=== PATIENT | female | born 1990 | race African-American/Black ===

== ENCOUNTER 2019-11-13 07:12 | Inpatient (IN) | payer MEDICAID ==
[2019-11-13] MEDS ORDERED: Sodium Chloride 0.9% 10 ML Syringe FLUSH PRN (07:15)
[2019-11-13] MEDS ORDERED: Ampicillin 2 GM in Sodium Chloride 0.9% 100 ML IV ONE (07:15)
[2019-11-13] MEDS ORDERED: Nalbuphine 10 MG/ML Syringe IVPUSH PRN (07:15)
[2019-11-13] MEDS ORDERED: Lactated Ringers 1,000 ML IV SCH (07:15)
[2019-11-13] MEDS ORDERED: Oxytocin/Lactated Ringers 10 UNIT/1,000 ML BAG IV SCH ×2 (07:15)
[2019-11-13] MEDS ORDERED: Ondansetron 4 MG/2 ML SDV IVPUSH PRN (07:15)
--- NOTE | 2019-11-13 07:24 | PCM.LDHP ---
L&D History of Present Illness - General Date of Service: 11/13/19 Admit Problem/Dx: Patient Status Order with Admit Dx/Problem 11/13/19 07:15 Patient Status [ADT] Routine Admission Diagnosis/Problem Admission Diagnosis/Problem Normal in third trimester Source of Information: Patient History Limitations: Reports: No Limitations - History of Present Illness Introduction:: Patient is a 29 y/o at 39 0/7 wks who presents for elective IOL given lives 1.5 hours from hospital. Doing well today. No contractions. No pain. Good FM - Related Data Allergies/Adverse Reactions: Allergies Allergy/AdvReac Type Severity Reaction Status Date / Time No Known Allergies Allergy Verified 11/13/19 07:18 Home Medications: Home Meds . 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: : 8 Para: 7 LMP (Approximate): Social & Family History - Tobacco Use Smoking Status *Q: Former Smoker - Alcohol Use Alcohol Use History: No - Recreational Drug Use Recreational Drug Use: No H&P Review of Systems - Review of Systems: Review Of Systems: See Below General: Reports: No Symptoms Pulmonary: Reports: No Symptoms Cardiovascular: Reports: No Symptoms Gastrointestinal: Reports: No Symptoms Genitourinary: Reports: No Symptoms Musculoskeletal: Reports: No Symptoms Psychiatric: Reports: No Symptoms Neurological: Reports: No Symptoms L&D Exam - Exam Exam: See Below - OB Specific Contraction Intensity: Irritability Movement: Active Heart Tones: Present Heart Tones per Min: 145 Heart Rate (FHR) Variability: Moderate (6-25 bmp) Presentation: Vertex - Shaw Score Shaw Score Cervix Position: Posterior Shaw Score Consistency: Soft Shaw Score Effacement: 51-70% Shaw Score Dilation: 1-2 cm Shaw Score 's Station: -2 Shaw Score Total: 6 - Exam General: Alert, Oriented, Cooperative Lungs: Clear to Auscultation, Normal Respiratory Effort Cardiovascular: Regular Rate, Regular Rhythm GI/Abdominal Exam: Soft, Non-Tender Genitourinary: Normal external exam Extremities: Normal Inspection Skin: Warm, Dry, Intact - Patient Data Result Diagrams: 11/13/19 07:25 - Problem List (1) 39 weeks gestation of SNOMED Code(s): 20808177 ICD Code: Z3A.39 - 39 WEEKS GESTATION OF Status: Acute Current Visit: Yes (2) GBS (group B Streptococcus carrier), +RV culture, currently SNOMED Code(s): 2923341319993, 437564149, 0747860092590 ICD Code: O99.820 - STREPTOCOCCUS B CARRIER STATE COMPLICATING Status: Acute Current Visit: Yes Problem List Initiated/Reviewed/Updated: Yes Orders Last 24hrs: Active Orders 24 hr Category Date Time Status Patient Status [ADT] Routine ADT 11/13/19 07:15 Active Activity as Tolerated [RC] PFP Care 11/13/19 07:15 Active Communication Order [RC] ASDIRECTED Care 11/13/19 07:15 Active Communication Order [RC] ASDIRECTED Care 11/13/19 07:15 Active Communication Order [RC] ASDIRECTED Care 11/13/19 07:15 Active Heart Tones [RC] ASDIRECTED Care 11/13/19 07:16 Active Monitoring [RC] INTERMITTENT Care 11/13/19 07:15 Active Non Stress Test [RC] PER UNIT ROUTINE Care 11/13/19 07:15 Active Notify Provider [RC] ASDIRECTED Care 11/13/19 07:15 Active Notify Provider [RC] PRN Care 11/13/19 07:15 Active Peripheral IV Care [RC] . DIRECTED Care 11/13/19 07:16 Active Vaginal Exam [RC] ASDIRECTED Care 11/13/19 07:15 Active Vital Signs [RC] ASDIRECTED Care 11/13/19 07:15 Active Regular Diet [DIET] Diet 11/13/19 Breakfast Active CBC W/O DIFF,HEMOGRAM [HEME] Routine Lab 11/13/19 07:15 Ordered RAPID PLASMA REAGIN,RPR [CHEM] Routine Lab 11/13/19 07:15 Ordered TYPE AND SCREEN [BBK] Routine Lab 11/13/19 07:15 Ordered Ampicillin 1 gm Med 11/13/19 11:30 Active Sodium Chloride 0.9% [Normal Saline] 100 ml IV Q4H Ampicillin 2 gm Med 11/13/19 07:15 Active Sodium Chloride 0.9% [Normal Saline] 100 ml IV ONETIME Lactated Ringers [Ringers, Lactated] 1,000 ml Med 11/13/19 07:15 Active IV ASDIRECTED Nalbuphine [Nubain] [facility] 11/13/19 07:15 Active 10 mg IVPUSH Q2H PRN Ondansetron [Zofran] [facility] 11/13/19 07:15 Active 4 mg IVPUSH Q4H PRN Oxytocin/Lactated Ringers [Pitocin in LR 10 Units/1,000 Med 11/13/19 07:15 Active ML] 10 unit in 1,000 ml IV .CONTINUOUS Oxytocin/Lactated Ringers [Pitocin in LR 10 Units/1,000 [facility] 11/13/19 07:15 Active ML] 10 unit in 1,000 ml IV TITRATE Sodium Chloride 0.9% [Saline Flush] [facility] 11/13/19 07:15 Active 10 ml FLUSH ASDIRECTED PRN Electronic Heart Tones Ext w TOCO [WOMSER] Ot 11/13/19 07:15 Ordered Routine Electronic Heart Tones Internal [WOMSER] Per Unit Ot 11/13/19 07:15 Ordered Routine Peripheral IV Insertion Adult [OM.PC] Routine Ot 11/13/19 07:15 Ordered Medication Orders Ampicillin Sodium 2 gm/ Sodium (Chloride) 100 mls @ 200 mls/hr IV ONETIME ONE Stop: 11/13/19 07:44 Ampicillin Sodium 1 gm/ Sodium (Chloride) 100 mls @ 200 mls/hr IV Q4H RAJANI Lactated Ringer's (Ringers, Lactated) 1,000 mls @ 40 mls/hr IV ASDIRECTED RAJANI Oxytocin/Lactated Ringer's (Pitocin In Lr 10 Units/1,000 Ml) 10 unit in 1,000 mls @ 12 mls/hr IV TITRATE RAJANI; Protocol Oxytocin/Lactated Ringer's (Pitocin In Lr 10 Units/1,000 Ml) 10 unit in 1,000 mls @ 500 mls/hr IV .CONTINUOUS RAJANI Nalbuphine HCl (Nubain) 10 mg IVPUSH Q2H PRN PRN Reason: Pain Ondansetron HCl (Zofran) 4 mg IVPUSH Q4H PRN PRN Reason: Nausea/Vomiting Sodium Chloride (Saline Flush) 10 ml FLUSH ASDIRECTED PRN PRN Reason: Keep Vein Open Assessment/Plan Comment:: * Labs done * GBS positive, will start Ampicillin * Pitocin for IOL with eventual AROM * Pain management per patient preference * Anticipate
[2019-11-13] MEDS ORDERED: Ampicillin 1 GM in Sodium Chloride 0.9% 100 ML IV SCH (11:30)
--- NOTE | 2019-11-13 12:03 | PCM.PNLD ---
Labor Progress Note - VS & Meds Vital Signs: Last Vital Signs Temp 37.4 C 11/13/19 08:37 Pulse 83 11/13/19 09:32 Resp 18 11/13/19 08:37 BP 123/69 11/13/19 09:32 Pulse Ox Active Medications: Current Medications Ampicillin Sodium 1 gm/ Sodium (Chloride) 100 mls @ 200 mls/hr IV Q4H RAJANI Last Admin: 11/13/19 11:18 Dose: 200 mls/hr Lactated Ringer's (Ringers, Lactated) 1,000 mls @ 40 mls/hr IV ASDIRECTED RAJANI Last Admin: 11/13/19 08:00 Dose: 40 mls/hr Oxytocin/Lactated Ringer's (Pitocin In Lr 10 Units/1,000 Ml) 10 unit in 1,000 mls @ 12 mls/hr IV TITRATE RAJANI; Protocol Last Titration: 11/13/19 10:50 Dose: 8 munits/min, 48 mls/hr Oxytocin/Lactated Ringer's (Pitocin In Lr 10 Units/1,000 Ml) 10 unit in 1,000 mls @ 500 mls/hr IV .CONTINUOUS RAJANI Nalbuphine HCl (Nubain) 10 mg IVPUSH Q2H PRN PRN Reason: Pain Ondansetron HCl (Zofran) 4 mg IVPUSH Q4H PRN PRN Reason: Nausea/Vomiting Sodium Chloride (Saline Flush) 10 ml FLUSH ASDIRECTED PRN PRN Reason: Keep Vein Open Discontinued Medications Ampicillin Sodium 2 gm/ Sodium (Chloride) 100 mls @ 200 mls/hr IV ONETIME ONE Stop: 11/13/19 07:44 Last Admin: 11/13/19 08:00 Dose: 200 mls/hr - Uterine Contractions Uterine Monitoring Mode: External [place] Contraction Intensity: Moderate - Monitoring Monitor Mode: External Ultrasound Heart Rate (FHR) Baseline: 125 Heart Rate (FHR) Variability: Moderate (6-25 bmp) Accelerations: Present, 15x15 Decelerations: None Strip Review: Category I - Vaginal Exam Dilation (cm): 3 Effacement (Percent): 75 Station: -2 Cervical Position: Posterior - Labor Progress (Free Text) Labor Progress: Doing well. Feeling more uncomfortable. AROM done as now with 2nd dose of antibiotics. Fluid clear. Continue present management
--- NOTE | 2019-11-13 14:06 | PCM.DEL ---
L & D Note - General Info Date of Service: 11/13/19 - Delivery Note Labor: Induced by ARM, Induced by Oxytocin Delivery Outcome: Livebirth Infant Delivery Method: Spontaneous Vaginal Delivery-Single Infant Delivery Mode: Spontaneous Presentation: Right Occiput Anterior (LEONARD) Nuchal Cord: None Anesthesia Type: None Amniotic Fluid Description: Clear Episiotomy Type: None Laceration: None Placenta: Intact, Spontaneous Cord: 3 Vessels Estimated Blood Loss: 100 Resuscitation Needed: Yes : Bulb Syringe, Stimulated, Warmed, [place] Used, Warmer Used Delivery Comments (Free Text/Narrative):: Patient found to be complete and began pushing. With maternal pushing effort head delivered from an LEONARD presentation. No nuchal cord present. With gentle traction shoulders and body delivered. placed on maternal abdomen. Cord clamped and cut. Cord blood obtained. Placenta allowed time to separate and expelled intact. Inspection of perineum showed no lacerations - General Info Date of Service: 11/13/19 - Patient Data Vitals - Most Recent: Last Vital Signs Temp 37.4 C 11/13/19 08:37 Pulse 83 11/13/19 09:32 Resp 18 11/13/19 08:37 BP 123/69 11/13/19 09:32 Pulse Ox Weight - Most Recent: 107.501 kg I&O - Last 24 Hours: Intake & Output 11/12/19 11/13/19 11/13/19 22:59 06:59 14:59 Intake Total 100 Balance 100 - Problem List & Annotations (1) 39 weeks gestation of SNOMED Code(s): 42617166 Code(s): Z3A.39 - 39 WEEKS GESTATION OF Status: Acute Current Visit: Yes (2) GBS (group B Streptococcus carrier), +RV culture, currently SNOMED Code(s): 1630797340526, 563071942, 1388920275038 Code(s): O99.820 - STREPTOCOCCUS B CARRIER STATE COMPLICATING Status: Acute Current Visit: Yes (3) Vaginal delivery SNOMED Code(s): 577719933 Code(s): O80 - ENCOUNTER FOR FULL-TERM UNCOMPLICATED DELIVERY Status: Acute Current Visit: Yes - Problem List Review Problem List Initiated/Reviewed/Updated: Yes - My Orders Last 24 Hours: My Active Orders 11/13/19 07:15 Patient Status [ADT] Routine Activity as Tolerated [RC] PFP Communication Order [RC] ASDIRECTED Communication Order [RC] ASDIRECTED Communication Order [RC] ASDIRECTED Monitoring [RC] INTERMITTENT Non Stress Test [RC] PER UNIT ROUTINE Notify Provider [RC] ASDIRECTED Notify Provider [RC] PRN Vaginal Exam [RC] ASDIRECTED Vital Signs [RC] ASDIRECTED Lactated Ringers [Ringers, Lactated] 1,000 ml IV ASDIRECTED Nalbuphine [Nubain] 10 mg IVPUSH Q2H PRN Ondansetron [Zofran] 4 mg IVPUSH Q4H PRN Oxytocin/Lactated Ringers [Pitocin in LR 10 Units/1,000 ML] 10 unit in 1,000 ml IV .CONTINUOUS Oxytocin/Lactated Ringers [Pitocin in LR 10 Units/1,000 ML] 10 unit in 1,000 ml IV TITRATE Sodium Chloride 0.9% [Saline Flush] 10 ml FLUSH ASDIRECTED PRN Electronic Heart Tones Ext w TOCO [WOMSER] Routine Electronic Heart Tones Internal [WOMSER] Per Unit Routine Peripheral IV Insertion Adult [OM.PC] Routine 11/13/19 07:16 Heart Tones [RC] ASDIRECTED Peripheral IV Care [RC] . DIRECTED 11/13/19 07:25 RAPID PLASMA REAGIN,RPR [CHEM] Routine 11/13/19 08:17 PATIENT RETYPE [BBK] Routine 11/13/19 11:30 Ampicillin 1 gm Sodium Chloride 0.9% [Normal Saline] 100 ml IV Q4H 11/13/19 13:29 Consult to Case Management/Lead Python Developer [CONS] Routine 11/13/19 Breakfast Regular Diet [DIET] - Assessment Assessment:: PPD#0 - Plan Plan:: * Routine cares * Discharge home in 1-2 days
[2019-11-13] MEDS ORDERED: Witch Hazel Medicated Pads 40/Jar TOP PRN (14:34)
[2019-11-13] MEDS ORDERED: Benzocaine/Menthol 20%-0.5% Spray 56 GM Canister TOP PRN (14:34)
[2019-11-13] MEDS ORDERED: Docusate Sodium 100 MG Cap PO PRN (14:34)
[2019-11-13] MEDS: Acetaminophen 325 MG Tab PO PRN ×2 (16:34→20:24)
[2019-11-13] MEDS: Ibuprofen 600 MG Tab PO PRN (18:04)
[2019-11-14] MEDS: Ibuprofen 600 MG Tab PO PRN ×2 (00:34→11:37)
--- NOTE | 2019-11-14 06:45 | PCM.DCSUM1 ---
Discharge Summary - Hospital Course Free Text/Narrative:: [facility] LIVE L/D Delivery Note Patient Name: AFIA AGUILAR Date of : 86 Patient Status: Inpatient Attending Provider: Anna Mansfield Date: 11/13/19 14:02 Initialization Date: 11/13/19 14:02 L & D Note - General Info Date of Service: 11/13/19 - Delivery Note Labor: Induced by ARM, Induced by Oxytocin Delivery Outcome: Livebirth Infant Delivery Method: Spontaneous Vaginal Delivery-Single Infant Delivery Mode: Spontaneous Presentation: Right Occiput Anterior (LEONARD) Nuchal Cord: None Anesthesia Type: None Amniotic Fluid Description: Clear Episiotomy Type: None Laceration: None Placenta: Intact, Spontaneous Cord: 3 Vessels Estimated Blood Loss: 100 Resuscitation Needed: Yes [place]: Bulb Syringe, Stimulated, Warmed, [place] Used, Warmer Used Delivery Comments (Free Text/Narrative):: Patient found to be complete and began pushing. With maternal pushing effort head delivered from an LEONARD presentation. No nuchal cord present. With gentle traction shoulders and body delivered. placed on maternal abdomen. Cord clamped and cut. Cord blood obtained. Placenta allowed time to separate and expelled intact. Inspection of perineum showed no lacerations - General Info Date of Service: 11/13/19 - Patient Data Vitals - Most Recent: Last Vital Signs Temp 37.4 C 11/13/19 08:37 Pulse 83 11/13/19 09:32 Resp 18 11/13/19 08:37 BP 123/69 11/13/19 09:32 Pulse Ox Weight - Most Recent: 107.501 kg I&O - Last 24 Hours: Intake & Output 11/12/19 11/13/19 11/13/19 22:59 06:59 14:59 Intake Total 100 Balance 100 - Problem List & Annotations (1) 39 weeks gestation of SNOMED Code(s): 16236571 Code(s): Z3A.39 - 39 WEEKS GESTATION OF Status: Acute Current Visit: Yes (2) GBS (group B Streptococcus carrier), +RV culture, currently SNOMED Code(s): 4543953796168, 346392967, 7071202206966 Code(s): O99.820 - STREPTOCOCCUS B CARRIER STATE COMPLICATING Status: Acute Current Visit: Yes (3) Vaginal delivery SNOMED Code(s): 363432938 Code(s): O80 - ENCOUNTER FOR FULL-TERM UNCOMPLICATED DELIVERY Status: Acute Current Visit: Yes - Problem List Review Problem List Initiated/Reviewed/Updated: Yes - My Orders Last 24 Hours: My Active Orders 11/13/19 07:15 Patient Status [ADT] Routine Activity as Tolerated [RC] PFP Communication Order [RC] ASDIRECTED Communication Order [RC] ASDIRECTED Communication Order [RC] ASDIRECTED Monitoring [RC] INTERMITTENT Non Stress Test [RC] PER UNIT ROUTINE Notify Provider [RC] ASDIRECTED Notify Provider [RC] PRN Vaginal Exam [RC] ASDIRECTED Vital Signs [RC] ASDIRECTED Lactated Ringers [Ringers, Lactated] 1,000 ml IV ASDIRECTED Nalbuphine [Nubain] 10 mg IVPUSH Q2H PRN Ondansetron [Zofran] 4 mg IVPUSH Q4H PRN Oxytocin/Lactated Ringers [Pitocin in LR 10 Units/1,000 ML] 10 unit in 1,000 ml IV .CONTINUOUS Oxytocin/Lactated Ringers [Pitocin in LR 10 Units/1,000 ML] 10 unit in 1,000 ml IV TITRATE Sodium Chloride 0.9% [Saline Flush] 10 ml FLUSH ASDIRECTED PRN Electronic Heart Tones Ext w TOCO [WOMSER] Routine Electronic Heart Tones Internal [WOMSER] Per Unit Routine Peripheral IV Insertion Adult [OM.PC] Routine 11/13/19 07:16 Heart Tones [RC] ASDIRECTED Peripheral IV Care [RC] . DIRECTED 11/13/19 07:25 RAPID PLASMA REAGIN,RPR [CHEM] Routine 11/13/19 08:17 PATIENT RETYPE [BBK] Routine 11/13/19 11:30 Ampicillin 1 gm Sodium Chloride 0.9% [Normal Saline] 100 ml IV Q4H 11/13/19 13:29 Consult to Case Management/Anode Builder [CONS] Routine 11/13/19 Breakfast Regular Diet [DIET] - Assessment Assessment:: PPD#0 - Plan Plan:: * Routine cares * Discharge home in 1-2 days HPI Initial Comments: [facility] LIVE L/D Delivery Note Patient Name: AFIA AGUILAR Date of : 86 Patient Status: Inpatient Attending Provider: Anna Mansfield Date: 11/13/19 14:02 Initialization Date: 11/13/19 14:02 L & D Note - General Info Date of Service: 11/13/19 - Delivery Note Labor: Induced by ARM, Induced by Oxytocin Delivery Outcome: Livebirth Infant Delivery Method: Spontaneous Vaginal Delivery-Single Delivery Mode: Spontaneous Presentation: Right Occiput Anterior (LEONARD) Nuchal Cord: None Anesthesia Type: None Amniotic Fluid Description: Clear Episiotomy Type: None Laceration: None Placenta: Intact, Spontaneous Cord: 3 Vessels Estimated Blood Loss: 100 Resuscitation Needed: Yes [place]: Bulb Syringe, Stimulated, Warmed, [place] Used, Warmer Used Delivery Comments (Free Text/Narrative):: Patient found to be complete and began pushing. With maternal pushing effort head delivered from an LEONARD presentation. No nuchal cord present. With gentle traction shoulders and body delivered. Infant placed on maternal abdomen. Cord clamped and cut. Cord blood obtained. Placenta allowed time to separate and expelled intact. Inspection of perineum showed no lacerations - General Info Date of Service: 11/13/19 - Patient Data Vitals - Most Recent: Last Vital Signs Temp 37.4 C 11/13/19 08:37 Pulse 83 11/13/19 09:32 Resp 18 11/13/19 08:37 BP 123/69 11/13/19 09:32 Pulse Ox Weight - Most Recent: 107.501 kg I&O - Last 24 Hours: Intake & Output 11/12/19 11/13/19 11/13/19 22:59 06:59 14:59 Intake Total 100 Balance 100 - Problem List & Annotations (1) 39 weeks gestation of SNOMED Code(s): 64021247 Code(s): Z3A.39 - 39 WEEKS GESTATION OF Status: Acute Current Visit: Yes (2) GBS (group B Streptococcus carrier), +RV culture, currently SNOMED Code(s): 4296148969463, 994981637, 4520415713072 Code(s): O99.820 - STREPTOCOCCUS B CARRIER STATE COMPLICATING Status: Acute Current Visit: Yes (3) Vaginal delivery SNOMED Code(s): 616794553 Code(s): O80 - ENCOUNTER FOR FULL-TERM UNCOMPLICATED DELIVERY Status: Acute Current Visit: Yes - Problem List Review Problem List Initiated/Reviewed/Updated: Yes - My Orders Last 24 Hours: My Active Orders 11/13/19 07:15 Patient Status [ADT] Routine Activity as Tolerated [RC] PFP Communication Order [RC] ASDIRECTED Communication Order [RC] ASDIRECTED Communication Order [RC] ASDIRECTED Monitoring [RC] INTERMITTENT Non Stress Test [RC] PER UNIT ROUTINE Notify Provider [RC] ASDIRECTED Notify Provider [RC] PRN Vaginal Exam [RC] ASDIRECTED Vital Signs [RC] ASDIRECTED Lactated Ringers [Ringers, Lactated] 1,000 ml IV ASDIRECTED Nalbuphine [Nubain] 10 mg IVPUSH Q2H PRN Ondansetron [Zofran] 4 mg IVPUSH Q4H PRN Oxytocin/Lactated Ringers [Pitocin in LR 10 Units/1,000 ML] 10 unit in 1,000 ml IV .CONTINUOUS Oxytocin/Lactated Ringers [Pitocin in LR 10 Units/1,000 ML] 10 unit in 1,000 ml IV TITRATE Sodium Chloride 0.9% [Saline Flush] 10 ml FLUSH ASDIRECTED PRN Electronic Heart Tones Ext w TOCO [WOMSER] Routine Electronic Heart Tones Internal [WOMSER] Per Unit Routine Peripheral IV Insertion Adult [OM.PC] Routine 11/13/19 07:16 Heart Tones [RC] ASDIRECTED Peripheral IV Care [RC] . DIRECTED 11/13/19 07:25 RAPID PLASMA REAGIN,RPR [CHEM] Routine 11/13/19 08:17 PATIENT RETYPE [BBK] Routine 11/13/19 11:30 Ampicillin 1 gm Sodium Chloride 0.9% [Normal Saline] 100 ml IV Q4H 11/13/19 13:29 Consult to Case Management/Anode Builder [CONS] Routine 11/13/19 Breakfast Regular Diet [DIET] - Assessment Assessment:: PPD#0 - Plan Plan:: * Routine cares * Discharge home in 1-2 days Brief History: [facility] LIVE . L/D Delivery Note. Patient Name: AFIA AGUILAR DEANMedical Record Number: [id number]. Date of : Patient Status: Inpatient. Attending Provider: Anna Mansfieldcount Number : [id number]. Date: 11/13/19 14:02Initialization Date: 11/13/19 14:02. L & D Note. - General Info. Date of Service: 11/13/19. - Delivery Note. Labor: Induced by ARM, Induced by Oxytocin. Delivery Outcome: Livebirth. Infant Delivery Method: Spontaneous Vaginal Delivery-Single. Delivery Mode: Spontaneous. Presentation: Right Occiput Anterior (LEONARD). Nuchal Cord: None. Anesthesia Type: None. Amniotic Fluid Description: Clear. Episiotomy Type: None. Laceration: None. Placenta: Intact, Spontaneous. Cord: 3 Vessels. Estimated Blood Loss: 100. Resuscitation Needed: Yes. [place]: Bulb Syringe, Stimulated, Warmed, [place] Used, Warmer Used. Delivery Comments ( Free Text/Narrative):: Patient found to be complete and began pushing. With maternal pushing effort head delivered from an LEONARD presentation. No nuchal cord present. With gentle traction shoulders and body delivered. Infant placed on maternal abdomen. Cord clamped and cut. Cord blood obtained. Placenta allowed time to separate and expelled intact. Inspection of perineum showed no lacerations. - General Info. Date of Service: 11/13/19. - Patient Data. Vitals - Most Recent: Last Vital Signs. Temp 37.4 C 11/13/19 08:37. Pulse 83 11/13/19 09:32. Resp 18 11/13/19 08:37. BP 123/69 09:32. Pulse Ox. Weight - Most Recent: 107.501 kg. I&O - Last 24 Hours: Intake & Output. 11/11/2004/. 22:[id number]:[id number]:59. Intake [id number]. [id number]. - Problem List & Annotations. (1) 39 weeks gestation of . SNOMED Code(s): 02972279. Code(s): Z3A.39 - 39 WEEKS GESTATION OF Status: Acute Current Visit: Yes. (2) GBS (group B Streptococcus carrier), +RV culture, currently . SNOMED Code(s): 1081512062063, 018104216, 9049942888638. Code(s): O99.820 - STREPTOCOCCUS B CARRIER STATE COMPLICATING Status: Acute Current Visit: Yes. (3) Vaginal delivery. SNOMED Code(s): 074490591. Code(s): O80 - ENCOUNTER FOR FULL-TERM UNCOMPLICATED DELIVERY Status: Acute Current Visit: Yes. - Problem List Review. Problem List Initiated/Reviewed/Updated: Yes. - My Orders. Last 24 Hours: My Active Orders. 11/13/19 07:15. Patient Status [ADT] Routine. Activity as Tolerated [RC] PFP. Communication Order [RC] ASDIRECTED. Communication Order [RC] ASDIRECTED. Communication Order [RC] ASDIRECTED. Monitoring [RC] INTERMITTENT. Non Stress Test [RC] PER UNIT ROUTINE. Notify Provider [RC] ASDIRECTED. Notify Provider [RC] PRN. Vaginal Exam [RC] ASDIRECTED. Vital Signs [RC] ASDIRECTED. Lactated Ringers [Ringers, Lactated] 1,000 ml IV ASDIRECTED. Nalbuphine [Nubain] 10 mg IVPUSH Q2H PRN. Ondansetron [Zofran] 4 mg IVPUSH Q4H PRN. Oxytocin/Lactated Ringers [Pitocin in LR 10 Units/1,000 ML] 10 unit in 1,000 ml IV .CONTINUOUS. Oxytocin/Lactated Ringers [Pitocin in LR 10 Units/1,000 ML] 10 unit in 1,000 ml IV TITRATE. Sodium Chloride 0.9% [Saline Flush] 10 ml FLUSH ASDIRECTED PRN. Electronic Heart Tones Ext w TOCO [WOMSER] Routine. Electronic Heart Tones Internal [WOMSER] Per Unit Routine. Peripheral IV Insertion Adult [OM.PC] Routine. 11/13/19 07:16. Heart Tones [RC] ASDIRECTED. Peripheral IV Care [RC] . DIRECTED. 11/13/19 07:25. RAPID PLASMA REAGIN,RPR [CHEM] Routine. 11/13/19 08:17. PATIENT RETYPE [BBK] Routine. 11/13/19 11:30. Ampicillin 1 gm Sodium Chloride 0.9% [Normal Saline] 100 ml IV Q4H. 11/13/19 13:29. Consult to Case Management/Anode Builder [CONS] Routine. 11/13/19 Breakfast. Regular Diet [DIET]. - Assessment. Assessment:: PPD#0. - Plan. Plan:: Routine cares. Discharge home in 1-2 days Diagnosis: Stroke: No - Discharge Data Discharge Date: 11/14/19 Discharge Disposition: Home, Self-Care 01 Condition: Good - Referral to Home Health Primary Care Physician: Anna Mansfield MD - Discharge Diagnosis/Problem(s) (1) 39 weeks gestation of SNOMED Code(s): 16584806 ICD Code: Z3A.39 - 39 WEEKS GESTATION OF Status: Acute Current Visit: Yes (2) GBS (group B Streptococcus carrier), +RV culture, currently SNOMED Code(s): 0141162501182, 020405879, 7762455926547 ICD Code: O99.820 - STREPTOCOCCUS B CARRIER STATE COMPLICATING Status: Acute Current Visit: Yes (3) Vaginal delivery SNOMED Code(s): 539014185 ICD Code: O80 - ENCOUNTER FOR FULL-TERM UNCOMPLICATED DELIVERY Status: Acute Current Visit: Yes - Patient Summary/Data Complications: none Consults: none Hospital Course: uneventful - Patient Instructions Diet: Usual Diet as Tolerated Driving: Do Not Drive (x48 hrs) Showering/Bathing: May Shower Notify Provider of: Fever, Increased Pain, Swelling and Redness, Drainage, Nausea and/or Vomiting - Discharge Plan *PRESCRIPTION DRUG MONITORING PROGRAM REVIEWED*: Not Applicable *COPY OF PRESCRIPTION DRUG MONITORING REPORT IN PATIENT ESME: Not Applicable Home Medications: Home Meds Acetaminophen [Tylenol] 650 mg PO Q6H PRN tablet 11/14/19 [Rx] Benzocaine/Menthol [Dermoplast Pain Relief [place]] 1 spray TOP ASDIRECTED PRN canister 11/14/19 [Rx] Docusate Sodium [Colace] 100 mg PO BID PRN cap 11/14/19 [Rx] Ibuprofen [Motrin] 600 mg PO Q6H PRN tablet 11/14/19 [Rx] witch Ria [Tucks] 1 pad TOP ASDIRECTED PRN pad 11/14/19 [Rx] Referrals: Anna Mansfield MD [Primary Care Provider] - (will call Saturday for appointment ) - Discharge Summary/Plan Comment DC Time >30 min.: No - Patient Data Vitals - Most Recent: Last Vital Signs Temp 98.4 F 11/14/19 02:53 Pulse 75 11/14/19 02:53 Resp 16 11/14/19 02:53 BP 121/58 L 11/14/19 02:53 Pulse Ox 97 11/14/19 02:53 Weight - Most Recent: 237 lb I&O - Last 24 hours: Intake & Output 11/13/19 11/13/19 11/14/19 14:59 22:59 06:59 Intake Total 2200 Balance 2200 Lab Results - Last 24 hrs: Laboratory Results - last 24 hr 11/13/19 11/13/19 11/13/19 Range/Units 07:25 07:25 07:25 WBC 8.80 (3.98-10.04) K/mm3 RBC 4.25 (3.98-5.22) M/mm3 Hgb 10.3 L (11.2-15.7) gm/dl Hct 33.2 L (34.1-44.9) % MCV 78.1 L (79.4-94.8) fl MCH 24.2 L (25.6-32.2) pg MCHC 31.0 L (32.2-35.5) g/dl RDW Std Deviation 40.3 (36.4-46.3) fL Plt Count 302 (182-369) K/mm3 MPV 10.2 (9.4-12.3) fl RPR Non-reactive (NONREACTIVE) Blood Type O POSITIVE Gel Antibody Screen Negative Med Orders - Current: Current Medications Acetaminophen (Tylenol) 650 mg PO Q4H PRN PRN Reason: mild pain or fever Last Admin: 11/13/19 20:24 Dose: 650 mg Benzocaine/Menthol (Dermoplast Pain Relief [place]) 0 gm TOP ASDIRECTED PRN PRN Reason: Perineal Comfort Measure Last Admin: 11/13/19 15:31 Dose: 1 can Docusate Sodium (Colace) 100 mg PO BID PRN PRN Reason: Constipation Ibuprofen (Motrin) 600 mg PO Q6H PRN PRN Reason: Mild pain or fever Last Admin: 11/14/19 00:34 Dose: 600 mg Witch Ria (Tucks) 1 pad TOP ASDIRECTED PRN PRN Reason: Perineal Comfort Measure Last Admin: 11/13/19 15:31 Dose: 1 pkg Discontinued Medications Ampicillin Sodium 2 gm/ Sodium (Chloride) 100 mls @ 200 mls/hr IV ONETIME ONE Stop: 11/13/19 07:44 Last Admin: 11/13/19 08:00 Dose: 200 mls/hr Ampicillin Sodium 1 gm/ Sodium (Chloride) 100 mls @ 200 mls/hr IV Q4H RAJANI Last Admin: 11/13/19 11:18 Dose: 200 mls/hr Lactated Ringer's (Ringers, Lactated) 1,000 mls @ 40 mls/hr IV ASDIRECTED RAJANI Last Admin: 11/13/19 08:00 Dose: 40 mls/hr Oxytocin/Lactated Ringer's (Pitocin In Lr 10 Units/1,000 Ml) 10 unit in 1,000 mls @ 12 mls/hr IV TITRATE RAJANI; Protocol Last Titration: 11/13/19 12:19 Dose: 10 munits/min, 60 mls/hr Oxytocin/Lactated Ringer's (Pitocin In Lr 10 Units/1,000 Ml) 10 unit in 1,000 mls @ 500 mls/hr IV .CONTINUOUS RAJANI Last Admin: 11/13/19 13:53 Dose: 500 mls/hr Nalbuphine HCl (Nubain) 10 mg IVPUSH Q2H PRN PRN Reason: Pain Last Admin: 11/13/19 13:06 Dose: 10 mg Ondansetron HCl (Zofran) 4 mg IVPUSH Q4H PRN PRN Reason: Nausea/Vomiting Sodium Chloride (Saline Flush) 10 ml FLUSH ASDIRECTED PRN PRN Reason: Keep Vein Open
[2019-11-14] MEDS ORDERED: Acetaminophen/HYDROcodone 325-5 MG Tab PO ONE (11:12)
== END 2019-11-14 15:30 | disposition home or self-care (01) | DRG 807 ==
LOC: JD.OB 07:12 → OBSVTOIN 13:50 → JD.OB 13:51
PROVIDERS: ADMIT Obstetrics & Gynecology; ATTEND Obstetrics & Gynecology
PROC: 10E0XZZ Delivery of Products of Conception, External Approach (ICD-10-PCS; principal; 2019-11-13)
PROC: 10907ZC Drainage of Amniotic Fluid, Therapeutic from Products of Conception, Via Natural or Artificial Opening (ICD-10-PCS; 2019-11-13)
PROC: 3E033VJ Introduction of Other Hormone into Peripheral Vein, Percutaneous Approach (ICD-10-PCS; 2019-11-13)
DX: O99.824 Streptococcus B carrier state complicating childbirth (principal); Z37.0 Single live birth; Z3A.39 39 weeks gestation of pregnancy
CPT/HCPCS: 36415; 59025; 59409; 85027; 86592; 86850; 86900; 86901; A9270-GY; J0290; J2300; J2590; J7050; J7120